=== PATIENT | female | born 1940 ===

== ENCOUNTER 2018-02-26 11:02 | Emergency (ER) | payer MEDICARE, OTHER ==
[2018-02-26 11:15] VITALS: BMI 21.9
[2018-02-26 11:19] VITALS: RESP 18
--- NOTE | 2018-02-26 11:34 | ED PDOC ---
Arrival/HPI - General Chief Complaint: Chest Pain Time Seen by Provider: 02/26/18 11:05 Historian: Patient - History of Present Illness Narrative History of Present Illness (Text): 02/26/18 11:30 77 year old female, whose PMH includes hypertension and arthritis, who presents to the emergency department complaining of rib pain on the chest area since 1.5 weeks. Patient states she was stretching hard and about to fall causing her to overstretch. Patient states at first it was intermittent pain and Motrin relieved the pain temporarily. which is why she decided to come to the emergency department for evaluation. No other complaints were made. 02/26/18 16:25 Time/Duration: > week Symptom Onset: Gradual Symptom Course: Worsening Activities at Onset: Light Context: Home Past Medical History - Provider Review Nursing Documentation Reviewed: Yes - Infectious Disease Hx of Infectious Diseases: None - Cardiac Hx Hypertension: Yes - HEENT Hx Glaucoma: Yes - Musculoskeletal/Rheumatological Hx Arthritis: Yes - Psychiatric Hx Substance Use: No Other/Comment: Insomnia - Surgical History Other/Comment: carpal tunnel - Anesthesia Hx Anesthesia: Yes Hx Anesthesia Reactions: No Hx Malignant Hyperthermia: No Family/Social History - Physician Review Nursing Documentation Reviewed: Yes Family/Social History: Unknown Family HX Smoking Status: Never Smoked Hx Alcohol Use: No Hx Substance Use: No Allergies/Home Meds Allergies/Adverse Reactions: Allergies No Known Allergies Allergy (Unverified 03/05/13 11:20) Home Medications: Home Meds Medication Instructions Recorded Confirmed Alprazolam [Xanax] 1 tab PO DAILY PRN 02/26/18 02/26/18 Metoprolol Tartrate [Lopressor] 1 tab PO DAILY 02/26/18 02/26/18 Omeprazole [Omeprazole] 1 tab PO DAILY 02/26/18 02/26/18 Valsartan/Hydrochlorothiazide 1 tab PO DAILY 02/26/18 02/26/18 [Valsartan-Hctz 80-12.5 mg Tab] traMADol/Acetaminophen [Ultracet 1 tab PO PRN PRN 02/26/18 02/26/18 37.5/325 mg] Review of Systems - Physician Review All systems were reviewed & negative as marked: Yes - Review of Systems Respiratory: absent: SOB Cardiovascular: absent: Chest Pain Musculoskeletal: Other (chest wall pain ) Physical Exam Vital Signs Reviewed: Yes Vital Signs Temp Pulse Resp BP Pulse Ox 02/26/18 14:17 98.2 F 75 18 142/69 98 02/26/18 12:51 65 18 158/71 H 96 02/26/18 11:19 98.4 F 68 18 163/76 H 96 Temperature: Afebrile Blood Pressure: Hypertensive Pulse: Regular Respiratory Rate: Normal Appearance: Positive for: Well-Appearing, Non-Toxic, Comfortable Pain Distress: None Mental Status: Positive for: Alert and Oriented X 3 - Systems Exam Head: Present: Atraumatic, Normocephalic Pupils: Present: PERRL Extroacular Muscles: Present: EOMI Conjunctiva: Present: Normal Respiratory/Chest: Present: Clear to Auscultation, Good Air Exchange, Other ( chest wall tenderness). No: Respiratory Distress, Accessory Muscle Use, Wheezes , Decreased Breath Sounds, Retracting, Rhonchi Cardiovascular: Present: Regular Rate and Rhythm, Normal S1, S2. No: Murmurs Upper Extremity: Present: Normal Inspection, Normal ROM, NORMAL PULSES, Neurovascularly Intact, Capillary Refill < 2s. No: Cyanosis, Edema, Tenderness , Swelling, Erythema, Deformity Neurological: Present: GCS=15, CN II-XII Intact, Speech Normal Skin: Present: Warm, Dry, Normal Color. No: Rashes Psychiatric: Present: Alert, Oriented x 3, Normal Insight, Normal Concentration Medical Decision Making ED Course and Treatment: 02/26/18 Impression: 77 year old female with chest wall tenderness complaining of chest wall pain s/ p overstretching since 1.5 weeks. Plan: -- EKG -- Labs -- Chest X-ray -- Reassess and disposition Progress Notes: 02/26/18 EKG: Ordered, reviewed, and independently interpreted the EKG. Rate : 61 BPM Rhythm : NSR Interpretation : No ST-segment elevations or depressions, no T-wave inversions, normal intervals. Comparison: February 2017. same changes Prior EKG from February 2017 was obtained by patient's PMD who reports her having PMH of anemia. 02/26/18 12:20 Chest X-ray: Creator : Seb Luna MD FINDINGS: LUNGS: No active pulmonary disease. PLEURA: No significant pleural effusion identified, no pneumothorax apparent. CARDIOVASCULAR: Normal. OSSEOUS STRUCTURES: No significant abnormalities. VISUALIZED UPPER ABDOMEN: Normal. OTHER FINDINGS: None. IMPRESSION: No active disease. 02/26/18 16:25 atypical pain. able to obtain ekg from pmd, no changes from 2017. pt with noted anemia. h/o of anemia as per pt, on b12. no bleeding as per pt. prefers to go home instaed of observation admission - Lab Interpretations Lab Results: 02/26/18 12:20 02/26/18 12:20 Lab Results 02/26/18 12:52: Urine Color Yellow, Urine Appearance Clear, Urine pH 6.0, Ur Specific [place] 1.020, Urine Protein Negative, Urine Glucose (UA) Negative, Urine Ketones Negative, Urine Blood Negative, Urine Nitrate Negative, Urine Bilirubin Negative, Urine Urobilinogen 0.2, Ur Leukocyte Esterase Negative 02/26/18 12:20: Sodium 135, Potassium 4.1, Chloride 99, Carbon Dioxide 25, Anion Gap 15, BUN 17, Creatinine 0.7, Est GFR ( Amer) > 60, Est GFR (Non- Af Amer) > 60, Random Glucose 102, Calcium 8.9, Magnesium 1.9, Total Bilirubin 0.4, AST 26, ALT 25, Alkaline Phosphatase 64, Lactate Dehydrogenase 392, Total Creatine Kinase 86, Troponin I < 0.01, Total Protein 6.8, Albumin 3.9, Globulin 2.8, Albumin/Globulin Ratio 1.4 02/26/18 12:20: PT 10.7, INR 0.93, APTT 30.6 02/26/18 12:20: WBC 6.8, RBC 3.35 L, Hgb 10.1 L, Hct 30.0 L, MCV 89.6, MCH 30.1 , MCHC 33.7, RDW 12.9, Plt Count 315, MPV 10.0, Gran % 67.8, Lymph % (Auto) 25.1 , [place] % (Auto) 5.6, Eos % (Auto) 1.2 L, Baso % (Auto) 0.3, Gran # 4.59, Lymph # (Auto) 1.7, [place] # (Auto) 0.4, Eos # (Auto) 0.1, Baso # (Auto) 0.02 I have reviewed the lab results: Yes - RAD Interpretation Radiology Orders: 02/26/18 11:47 CHEST PORTABLE [RAD] Stat Gun Striper: Radiologist - EKG Interpretation Interpreted by ED Physician: Yes Type: 12 lead EKG - Medication Orders Current Medication Orders: Discontinued Medications Aspirin (Aspirin) 325 mg PO STAT STA Stop: 02/26/18 11:49 Last Admin: 02/26/18 12:27 Dose: 325 mg - Scribe Statement The provider has reviewed the documentation as recorded by the Jarretibe Mel Cohen Provider Scribe Attestation: All medical record entries made by the Scribe were at my direction and personally dictated by me. I have reviewed the chart and agree that the record accurately reflects my personal performance of the history, physical exam, medical decision making, and the department course for this patient. I have also personally directed, reviewed, and agree with the discharge instructions and disposition. Disposition/Present on Arrival - Present on Arrival Any Indicators Present on Arrival: No History of DVT/PE: No History of Uncontrolled Diabetes: No Urinary Catheter: No History of Decub. Ulcer: No History Surgical Site Infection Following: None - Disposition Have Diagnosis and Disposition been Completed?: Yes Diagnosis: Chest pain Disposition: HOME/ ROUTINE Disposition Time: 02:00 Condition: STABLE Discharge Instructions (ExitCare): Chest Pain, Chest Pain (ED) Additional Instructions: please follow up with your doctor. return to emergency room with worsening symptoms or concerns. Referrals: Jim Carbone MD [Staff Provider] - Follow up with primary Edwin Slade MD [Family Provider] - Follow up with primary Forms: [employer] (Sinhala)
--- NOTE | 2018-02-26 12:21 | RAD ---
HISTORY: cp COMPARISON: No prior. FINDINGS: LUNGS: No active pulmonary disease. PLEURA: No significant pleural effusion identified, no pneumothorax apparent. CARDIOVASCULAR: Normal. OSSEOUS STRUCTURES: No significant abnormalities. VISUALIZED UPPER ABDOMEN: Normal. OTHER FINDINGS: None. IMPRESSION: No active disease.
[2018-02-26 12:29] LABS: BASO # 0.02 K/mm3 (0.0-2.0); BASO % 0.3 % (0.0-3.0); EOS # 0.1 (0.0-0.7); EOS % 1.2 % (1.5-5.0); GRAN # 4.59 (1.4-6.5); GRAN % 67.8 % (50.0-68.0); HEMOGLOBIN 10.1 g/dL (12.0-16.0); LYMPH # 1.7 (1.2-3.4); LYMPH % 25.1 % (22.0-35.0); MEAN CELL VOLUME 89.6 fl (80.0-105.0); MEAN CORPUSCULAR HEMOGLOBIN 30.1 pg (25.0-35.0); MEAN CORPUSCULAR HGB CONC 33.7 g/dl (31.0-37.0); MONO # 0.4 (0.1-0.6); MONO % 5.6 % (1.0-6.0); RBC 3.35 10^6/uL (3.5-6.1); RED CELL DISTRIBUTION WIDTH 12.9 % (11.5-14.5); WHITE BLOOD COUNT 6.8 10^3/ul (4.5-11.0)
[2018-02-26 12:41] LABS: ALB/GLOB RATIO 1.4 (1.1-1.8); ALBUMIN 3.9 g/dL (3.0-4.8); ALT/SGPT 25 U/L (7-56); AST/SGOT 26 U/L (14-36); BLOOD UREA NITROGEN 17 mg/dL (7-21); CALCIUM 8.9 mg/dL (8.4-10.5); GFR AFRICAN-AMERICAN > 60; GFR NON-AFRICAN AMERICAN > 60
[2018-02-26 12:42] LABS: INR 0.93 (0.93-1.08); PARTIAL THROMBOPLASTIN TIME 30.6 Seconds (25.1-36.5); PROTHROMBIN TIME 10.7 SECONDS (9.4-12.5)
[2018-02-26 12:52] LABS: TROPONIN I < 0.01 ng/mL
[2018-02-26 13:13] LABS: URINE APPEARANCE CLEAR (CLEAR); URINE BILIRUBIN NEGATIVE (NEGATIVE); URINE BLOOD NEGATIVE (NEGATIVE); URINE COLOR YELLOW (YELLOW); URINE GLUCOSE (UA) NEGATIVE (NEGATIVE); URINE LEUKOCYTE ESTERASE NEGATIVE Leu/uL (NEGATIVE); URINE PROTEIN NEGATIVE mg/dL (<30 mg/dL); URINE UROBILINOGEN 0.2 E.U./dL (<1 E.U./dL)
[2018-02-26 14:21] VITALS: BP 142/69; PULSE 75; TEMP 98.2; O2SAT 98
--- NOTE | 2018-02-26 17:09 | CARD ---
APPROVED REPORT EKG Measurement Heart [id number] <Conclusion> Normal sinus rhythm T wave inversion in I and AVL. LVH.
== END 2018-02-26 14:17 | disposition home or self-care (01) ==
LOC: ED 11:02
DX: R07.9 Chest pain, unspecified (principal); I10 Essential (primary) hypertension